=== PATIENT | male | born 1940 | race Caucasian/White ===

== ENCOUNTER 2018-10-22 05:35 | Day surgery (SDC) | payer MEDICARE ==
[~2018-10-22] VITALS: Ht 180.3 cm; Wt 88.5 kg
[~2018-10-22 05:35] MED LIST: CALCTAB89 PO; FINA5TAB2 PO; FISH7.5C PO; GARL10004 PO; MAGN250T9 PO; VITA100067 PO; VITA400C7 PO
[2018-10-22] MEDS ORDERED: LR 1,000 ML IV SCH ×3 (07:00→09:45)
[2018-10-22] MEDS ORDERED: ceFAZolin SOD 1 GM in D5W MINI-BAG PLUS 50 ML IV ONE (07:00)
[2018-10-22] MEDS ORDERED: BUPIVACAINE/EPIN 0.25% 30 ML VIAL As Ordered ONE (07:10)
[2018-10-22] MEDS ORDERED: dexameTHASONE 4 MG/ML 1ML VIAL (J1100) As Ordered ONE (07:20)
[2018-10-22] MEDS ORDERED: fentaNYL 250 MCG/5 ML INJECTION (J3010) As Ordered ONE (07:20)
[2018-10-22] MEDS ORDERED: PROPOFOL 200 MG/20 ML VIAL As Ordered ONE (07:20)
[2018-10-22] MEDS ORDERED: LIDOCAINE 2% INJ 100 MG/5 ML SDV (FOR ANES.) As Ordered ONE (07:20)
[2018-10-22] MEDS ORDERED: ROCURONIUM BROMIDE 50 MG/5 ML VIAL As Ordered ONE (07:20)
[2018-10-22] MEDS ORDERED: MIDAZOLAM INJ 2 MG/2 ML VIAL (J2250) As Ordered ONE (07:21)
[2018-10-22] MEDS ORDERED: ePHEDrine SULFATE 25 MG/5 ML(5MG/ML) SYRINGE As Ordered ONE (07:46)
--- NOTE | 2018-10-22 07:49 | ECGEPIP ---
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
[2018-10-22] MEDS ORDERED: ACETAMINOPHEN 1000MG 100ML IV BTL (OFIRMEV) (J0131 PER 10MG) As Ordered ONE (07:58)
[2018-10-22] MEDS ORDERED: NEOSTIGMINE 10 MG/10 ML VIAL (J2710) As Ordered ONE (08:32)
[2018-10-22] MEDS ORDERED: GLYCOPYRROLATE INJ 0.2 MG/ML 2 ML VIAL As Ordered ONE (08:32)
[2018-10-22] MEDS ORDERED: KETOROLAC 60 MG/2 ML VIAL (J1885) As Ordered ONE (08:32)
[2018-10-22] MEDS ORDERED: HYDROmorphone HCL 2 MG/ML 1ML VIAL (J1170) As Ordered ONE (08:33)
[2018-10-22] MEDS ORDERED: ONDANSETRON 4MG/2ML VIAL (J2405) As Ordered ONE (08:33)
--- NOTE | 2018-10-22 09:33 | RO ---
DATE OF PROCEDURE: 10/22/2018 PREOPERATIVE DIAGNOSIS: Right inguinal hernia. POSTOPERATIVE DIAGNOSIS: Right inguinal hernia. PROCEDURE: Robotic-assisted right inguinal hernia repair with ProGrip mesh. SURGEON: Dr. Enrique Noble. TUBE BACKER: NEIDA Hassan (provided instrument exchange, trocar placement, trocar closure site and mesh placement. ANESTHESIA: General. ESTIMATED BLOOD LOSS: Minimal. FLUIDS: Crystalloid. DESCRIPTION OF PROCEDURE: The patient was brought to the operating room was given general anesthesia. After adequate anesthesia and preoperative antibiotics were given, the patient was prepped and draped in the usual sterile fashion. Next a supraumbilical incision was made with skin knife. Blunt dissection was carried down to fascia. Veress needle placed into the abdominal cavity and insufflated to 15 mm of pressure. A dilating 8 mm trocar was placed at this time and under direct visualization, two lateral 8 mm trocars were placed. Next the patient was placed in steep Trendelenburg position and the direct inguinal hernia was appreciated on the right-hand side. Next, after the camera was docked and the patient was in position, peritoneum was taken down with monopolar cut scissors and eventually the flap of peritoneum was taken down. Next the blunt dissection as well as sharp dissection was used to dissect the peritoneal flap off the abdominal wall/preperitoneal space. Eventually this was taken off the cord structures quite nicely. There was no evidence of indirect inguinal hernia. There was a direct, indirect inguinal hernia which was mobilized off Vijay's ligament in this area and the pubis was also cleared of tissue in this area as well. Once adequate mobilization of the tissue was performed, a ProGrip mesh was placed in the preperitoneal space. I did feel that this needed to be tacked because of a relatively deep pelvis and somewhat bowel-shaped. Thus I tacked the ProGrip with two medial stitches of #3-0 Vicryl and then the peritoneum was closed with a V-Loc suture. All trocars removed under direct visualization and #4-0 Vicryl was used close the skin. Steri-Strips and dry sterile dressing was applied. The patient was awakened, extubated, brought to recovery room awake, alert, hemodynamically stable. Sponge and needle counts correct times two.
[2018-10-22] MEDS ORDERED: MEPERIDINE INJ 25 MG/ML VIAL (J2175) IV PRN (09:45)
[2018-10-22] MEDS ORDERED: PERCOCET 5MG/325MG TAB PO PRN (09:45)
[2018-10-22] MEDS ORDERED: METOCLOPRAMIDE INJ 10MG/2ML VIAL (J2765) IV PRN (09:45)
[2018-10-22] MEDS ORDERED: ONDANSETRON 4MG/2ML VIAL (J2405) IV PRN ×2 (09:45)
[2018-10-22] MEDS ORDERED: NORCO, ANEXSIA 5/325MG TABLET (HYDROcodone/ACETAMINOPHEN) PO PRN (09:45)
[2018-10-22] MEDS ORDERED: fentaNYL 100 MCG/2 ML INJECTION (J3010) IV PRN (09:45)
[2018-10-22 13:31] VITALS: BP 165/82
== END 2018-10-22 13:31 | disposition home or self-care (01) ==
LOC: M SDC 05:35
PROVIDERS: ATTEND Surgery
DX: K40.90 Unilateral inguinal hernia, without obstruction or gangrene, not specified as recurrent (principal); Z88.8 Allergy status to other drugs, medicaments and biological substances; Z79.899 Other long term (current) drug therapy
CPT/HCPCS: 49650; 93005; C1781; J0131; J0690; J1100; J1170; J1885; J2250; J2405; J2710; J3010

== ENCOUNTER → 2020-06-28 | Outpatient (CLI) | payer SELFPAY | LOC: M LABSMTC 15:05 | PROVIDERS: ATTEND Pediatrics | DX: Z20.828 Contact with and (suspected) exposure to other viral communicable diseases (principal) ==

== ENCOUNTER → 2022-03-20 | Outpatient (REF) | payer MEDICARE ==
[~2022-03-20] MED LIST changes: +FISH10005 PO; -FISH7.5C PO
[2022-03-20 15:44] LABS: VITAMIN B12 LEVEL 290 PG/ML (247-911)
== END ==
LOC: M LAB REF 11:40
PROVIDERS: ATTEND Nurse Practitioner Adult Health
DX: R41.3 Other amnesia (principal)

== ENCOUNTER → 2023-10-17 | Outpatient (CLI) | payer MEDICARE | LOC: M WUC 11:06 | PROVIDERS: ATTEND Nurse Practitioner Adult Health | DX: R05.9 Cough, unspecified (principal) ==

== ENCOUNTER → 2024-04-28 | Outpatient (REF) | payer MEDICARE | LOC: M LAB REF 12:25 | PROVIDERS: ATTEND Nurse Practitioner Adult Health | DX: E53.8 Deficiency of other specified B group vitamins (principal) ==

== ENCOUNTER → 2024-10-28 | Outpatient (REF) | payer MEDICARE | LOC: M LAB REF 12:17 | PROVIDERS: ATTEND Nurse Practitioner Adult Health | DX: E53.8 Deficiency of other specified B group vitamins (principal) ==